=== PATIENT | female | born 1975 | race Caucasian/White ===

== ENCOUNTER → 2017-10-21 | Outpatient (CLI) | payer BC ==
[2017-10-21 09:56] LABS: ABSOLUTE BASOPHILS # (AUTO) 0.1 10^3/uL (0.0-0.2); ABSOLUTE EOSINOPHILS # (AUTO) 0.1 10^3/uL (0.0-0.6); ABSOLUTE MONOCYTES (AUTO) 0.7 10^3/uL (0.1-1.4); ABSOLUTE NEUT (AUTO) 4.5 10^3/uL (1.7-8.2); BASOPHILS % (AUTO) 0.8 % (0-2); EOSINOPHILS % (AUTO) 1.6 % (0-6); HEMATOCRIT 30.3 % (36.0-47.0); HEMOGLOBIN 9.7 g/dL (12.0-15.5); HGB HCT DIFFERENCE -1.2; LYMPHOCYTES % (AUTO) 27.2 % (13-45); MEAN CORPUSCULAR HEMOGLOBIN 22.8 pg (27.0-33.4); MEAN CORPUSCULAR HGB CONC 32.1 g/dL (32.0-36.0); MEAN CORPUSCULAR VOLUME 71 fl (80-97); MONOCYTES % (AUTO) 9.2 % (3-13); RED BLOOD COUNT 4.26 10^6/uL (3.72-5.28); RED CELL DISTRIBUTION WIDTH 16.9 % (11.5-14.0); SEGMENTED NEUTROPHILS % (AUTO) 61.2 % (42-78); WHITE BLOOD COUNT 7.3 10^3/uL (4.0-10.5)
[2017-10-21 10:22] LABS: ALANINE AMINOTRANSFERASE 30 U/L (9-52); ALBUMIN 4.2 g/dL (3.5-5.0); ALKALINE PHOSPHATASE 50 U/L (38-126); ANION GAP 11 (5-19); ASPARTATE AMINO TRANSFERASE 20 U/L (14-36); BILIRUBIN,DIRECT 0.4 mg/dL (0.0-0.4); BILIRUBIN,TOTAL 0.8 mg/dL (0.2-1.3); BLOOD UREA NITROGEN 12 mg/dL (7-20); CARBON DIOXIDE 22 mmol/L (22-30); CHLORIDE 107 mmol/L (98-107); CHOLESTEROL 189.51 mg/dL (0-200); CREATININE RESULT 0.56 mg/dL (0.52-1.25); Direct HDL 92 mg/dL (>40); GLUCOSE 91 mg/dL (75-110); POTASSIUM 4.4 mmol/L (3.6-5.0); TOTAL PROTEIN 7.1 g/dL (6.3-8.2); TRIGLYCERIDES 88 mg/dL (<150)
[2017-10-21 10:33] LABS: DIRECT LDL 80 mg/dL (<100)
== END ==
LOC: LAB 09:35
PROVIDERS: ATTEND Obstetrics & Gynecology
DX: Z13.1 Encounter for screening for diabetes mellitus (principal); Z13.220 Encounter for screening for lipoid disorders; Z13.21 Encounter for screening for nutritional disorder; Z13.0 Encounter for screening for diseases of the blood and blood-forming organs and certain disorders involving the immune mechanism; Z13.6 Encounter for screening for cardiovascular disorders; Z13.29 Encounter for screening for other suspected endocrine disorder
CPT/HCPCS: 36415; 80053; 80061; 82306; 83036; 84443; 85025

== ENCOUNTER → 2020-07-26 | Outpatient (CLI) | payer BC ==
[2020-07-26 11:34] LABS: ABSOLUTE BASOPHILS # (AUTO) 0.1 10^3/uL (0.0-0.2); ABSOLUTE EOSINOPHILS # (AUTO) 0.3 10^3/uL (0.0-0.6); ABSOLUTE LYMPHOCYTES (AUTO) 1.8 10^3/uL (0.5-4.7); ABSOLUTE MONOCYTES (AUTO) 0.7 10^3/uL (0.1-1.4); ABSOLUTE NEUT (AUTO) 5.2 10^3/uL (1.7-8.2); BASOPHILS % (AUTO) 1.3 % (0-2); EOSINOPHILS % (AUTO) 3.8 % (0-6); HEMOGLOBIN 9.6 g/dL (12.0-15.5); LYMPHOCYTES % (AUTO) 22.1 % (13-45); MEAN CORPUSCULAR HEMOGLOBIN 21.1 pg (27.0-33.4); MEAN CORPUSCULAR HGB CONC 31.2 g/dL (32.0-36.0); MEAN CORPUSCULAR VOLUME 68 fl (80-97); MONOCYTES % (AUTO) 9.1 % (3-13); PLATELET COUNT 512 10^3/uL (150-450); RED BLOOD COUNT 4.58 10^6/uL (3.72-5.28); SEGMENTED NEUTROPHILS % (AUTO) 63.7 % (42-78); TOTAL CELLS COUNTED % (AUTO) 100 %; WHITE BLOOD COUNT 8.1 10^3/uL (4.0-10.5)
[2020-07-26 12:04] LABS: ALKALINE PHOSPHATASE 53 U/L (38-126); ANION GAP 7 (5-19); ASPARTATE AMINO TRANSFERASE 26 U/L (14-36); BILIRUBIN,DIRECT 0.3 mg/dL (0.0-0.4); BILIRUBIN,TOTAL 0.7 mg/dL (0.2-1.3); BLOOD UREA NITROGEN 8 mg/dL (7-20); CALCIUM 8.7 mg/dL (8.4-10.2); CARBON DIOXIDE 25 mmol/L (22-30); CHLORIDE 107 mmol/L (98-107); CHOLESTEROL 171.57 mg/dL (0-200); GLUCOSE 84 mg/dL (75-110); POTASSIUM 4.7 mmol/L (3.6-5.0); TOTAL PROTEIN 6.8 g/dL (6.3-8.2); TRIGLYCERIDES 98 mg/dL (<150)
[2020-07-26 12:24] LABS: DIRECT LDL 90 mg/dL (<100)
== END ==
LOC: OD 09:55
PROVIDERS: ATTEND Obstetrics & Gynecology
DX: Z13.220 Encounter for screening for lipoid disorders (principal); Z13.0 Encounter for screening for diseases of the blood and blood-forming organs and certain disorders involving the immune mechanism; Z13.21 Encounter for screening for nutritional disorder; Z13.6 Encounter for screening for cardiovascular disorders; Z13.29 Encounter for screening for other suspected endocrine disorder; Z13.1 Encounter for screening for diabetes mellitus
CPT/HCPCS: 36415; 80053; 80061; 82306; 83036; 84443; 85025

== ENCOUNTER → 2020-08-02 | Outpatient (CLI) | payer BC ==
--- NOTE | 2020-08-02 14:50 | WOMENS IMAGING REPORT ---
EXAM DESCRIPTION: RIGHT DIAGNOSTIC MAMMO W/CAD; U/S BREAST UNILAT LIMITED IMAGES COMPLETED DATE/TIME: 08/02/2020 9:28 am; 08/02/2020 10:31 am REASON FOR STUDY: R92.2 INCONCLUSIVE MAMMOGRAM; N63 R92.2 INCONCLUSIVE MAMMOGRAM COMPARISON: Mammograms 07/26/2020 EXAM PARAMETERS: Cone compression magnification craniocaudal and mediolateral oblique images of the breast recorded with digital acquisition. Right breast 90 mediolateral view. Right breast ultrasound was also performed. Read with the assistance of CAD. .[facility] - [employer] Version 9.2 LIMITATIONS: None. FINDINGS: BREAST LATERALITY: right MASSES: A 1 cm mammographic mass with irregular borders and punctate calcification is present in the right breast upper inner quadrant about 6 cm from the nipple, at about the 1 o'clock position. CALCIFICATIONS: Cluster of adjacent calcifications slightly variable in size shape and density, 12 o' clock position 6 cm from the nipple. ARCHITECTURAL DISTORTION: None. ASYMMETRY: None noted. OTHER: No other significant findings. Right breast ultrasound: Ultrasound of the upper half right breast was performed. No discrete masses are identified at ultras ound. No cysts. No worrisome acoustic absorption IMPRESSION: 1 cm mammographic mass with irregular borders and punctate calcification right breast up per inner quadrant about 6 cm the nipple. This is not visualized at ultrasound. Stereotactic biopsy is recommended with post biopsy clip placement and follow-up two-view mammogram. Clustered microcalcifications in the right breast 12 o'clock position 6 cm from the nipple. Stereota ctic biopsy is recommended with post biopsy clip placement and follow-up two-view mammogram BREAST DENSITY: b. There are scattered areas of fibroglandular density. BIRAD: ASSESSMENT: 4 Suspicious. Biopsy should be performed in the absence of clinical contra-indic ation. RECOMMENDATION: RECOMMENDED FOLLOW UP: Stereotactic biopsy of right breast 1 cm nodule with lobular borders and punctate calcification. Stereotactic biopsy of right breast calcifications 12 o'clock position. COMMUNICATION:These results were not discussed with the patient COMMENT: The patient has been notified of the results by letter per MQSA requirements. Additional no tification policies are in place for contacting patient with suspicious or incomplete findings. Quality ID #225: The [employer] recommends an annual screening mammogram for women aged 40 years or over. This facility utilizes a reminder system to ensure that all patients receive reminder letters, and/or direct phone calls for appointments. This includes reminders for routine scr eening mammograms, diagnostic mammograms, or other Breast Imaging Interventions when appropriate. Th is patient will be placed in the appropriate reminder system. TECHNICAL DOCUMENTATION: FINDING NUMBER: (1) ASSESSMENT: (1) JOB ID: [id number] 2010 [employer]- All Rights Reserved Reading location - IP/workstation name: [email or web address]
--- NOTE | 2020-08-02 14:50 | WOMENS IMAGING REPORT ---
EXAM DESCRIPTION: RIGHT DIAGNOSTIC MAMMO W/CAD; U/S BREAST UNILAT LIMITED IMAGES COMPLETED DATE/TIME: 08/02/2020 9:28 am; 08/02/2020 10:31 am REASON FOR STUDY: R92.2 INCONCLUSIVE MAMMOGRAM; N63 R92.2 INCONCLUSIVE MAMMOGRAM COMPARISON: Mammograms 07/26/2020 EXAM PARAMETERS: Cone compression magnification craniocaudal and mediolateral oblique images of the breast recorded with digital acquisition. Right breast 90 mediolateral view. Right breast ultrasound was also performed. Read with the assistance of CAD. .[facility] - [employer] Version 9.2 LIMITATIONS: None. FINDINGS: BREAST LATERALITY: right MASSES: A 1 cm mammographic mass with irregular borders and punctate calcification is present in the right breast upper inner quadrant about 6 cm from the nipple, at about the 1 o'clock position. CALCIFICATIONS: Cluster of adjacent calcifications slightly variable in size shape and density, 12 o' clock position 6 cm from the nipple. ARCHITECTURAL DISTORTION: None. ASYMMETRY: None noted. OTHER: No other significant findings. Right breast ultrasound: Ultrasound of the upper half right breast was performed. No discrete masses are identified at ultras ound. No cysts. No worrisome acoustic absorption IMPRESSION: 1 cm mammographic mass with irregular borders and punctate calcification right breast up per inner quadrant about 6 cm the nipple. This is not visualized at ultrasound. Stereotactic biopsy is recommended with post biopsy clip placement and follow-up two-view mammogram. Clustered microcalcifications in the right breast 12 o'clock position 6 cm from the nipple. Stereota ctic biopsy is recommended with post biopsy clip placement and follow-up two-view mammogram BREAST DENSITY: b. There are scattered areas of fibroglandular density. BIRAD: ASSESSMENT: 4 Suspicious. Biopsy should be performed in the absence of clinical contra-indic ation. RECOMMENDATION: RECOMMENDED FOLLOW UP: Stereotactic biopsy of right breast 1 cm nodule with lobular borders and punctate calcification. Stereotactic biopsy of right breast calcifications 12 o'clock position. COMMUNICATION:These results were not discussed with the patient COMMENT: The patient has been notified of the results by letter per MQSA requirements. Additional no tification policies are in place for contacting patient with suspicious or incomplete findings. Quality ID #225: The [employer] recommends an annual screening mammogram for women aged 40 years or over. This facility utilizes a reminder system to ensure that all patients receive reminder letters, and/or direct phone calls for appointments. This includes reminders for routine scr eening mammograms, diagnostic mammograms, or other Breast Imaging Interventions when appropriate. Th is patient will be placed in the appropriate reminder system. TECHNICAL DOCUMENTATION: FINDING NUMBER: (1) ASSESSMENT: (1) JOB ID: [id number] 2010 [employer]- All Rights Reserved Reading location - IP/workstation name: [email or web address]
== END ==
LOC: WI 08:53 → EDSTATUS 09:00
PROVIDERS: ATTEND Obstetrics & Gynecology
DX: N63.12 Unspecified lump in the right breast, upper inner quadrant (principal)
CPT/HCPCS: 76642; 77065

== ENCOUNTER → 2020-09-05 | Day surgery (SDC) | payer BC ==
[~2020-09-05] MED LIST: LIDOCAINE 1%/EPINEPHRINE INJ 20 ML VIAL ONE
--- NOTE | 2020-09-05 11:57 | Discharge Summary ---
Discharge Summary (SDC) - Discharge Final Diagnosis: 1. Clustered microcalcifications right breast 2. Asymmetric density right breast Date of Surgery: 09/05/20 Discharge Date: 09/05/20 Condition: Good Treatment or Instructions: Allow Steri-Strips to fall off; take Tylenol and Motrin as needed pain; wear supportive bra; await final pathology report; follow-up with [place] [facility] in 1 to 2 weeks. Referrals: RASHAWN REID MD [Primary Care Provider] - Discharge Diet: As Tolerated Discharge Activity: Activity As Tolerated, Other - Wear supportive bra Home Care Assistance: None Needed Report the Following to Your Physician Immediately: Shortness of Breath, Increase in Pain, Fever over 101 Degrees
--- NOTE | 2020-09-05 12:04 | Operative Report ---
Operative Report DATE OF SURGERY: 09/05/20 PREOPERATIVE DIAGNOSIS: 1. Clustered microcalcifications central right breast. 2. Asymmetric nodular density with calcification central aspect right breast POSTOPERATIVE DIAGNOSIS: Same OPERATION: 1. Stereotactically directed incision mammotomy and core biopsies right breast, central aspect lateral position. 2. Second stereotactically directed incision mammotomy core biopsies right breast, central aspect, medial position. 3. Placement of clip markers at biopsy sites described above. 4. Interpretation of intraoperative mammography and specimen radiographs SURGEON: OSCAR CEBALLOS ANESTHESIA: Local TISSUE REMOVED OR ALTERED: Multiple cores right breast COMPLICATIONS: None ESTIMATED BLOOD LOSS: Scant INTRAOPERATIVE FINDINGS: See below PROCEDURE: Patient was taken from the waiting area to the radiology suite with the stereotactic table. The right breast was placed to compression, and a craniocaudal approach was used. There were 2 target sites in the right breast, deep central aspect, one slightly lateral, cluster microcalcifications, and the second slightly medial, asymmetric density with a single microcalcification. They will be referred to as target a and B respectfully Surgical plan and surgical timeout were conducted Target a was localized with 0, plus and -15 views. The surface of the right breast was prepped with Betadine. Skin was anesthetized with 1% with epinephrine lidocaine. A small javi was made the skin with 11 blade. Mammotome advanced the appropriate depth. Pre and post fire films show good alignment between the mammotome tip and the cluster of microcalcifications. We now cut approximately 10 cores in a circumferential fashion acquiring adequate specimens which were then placed on a Mena dish and imaged with the specimen radiograph machine in the procedure room. This revealed at least 2 cores with the majority of the micro calcifications of interest. We placed a clip marker into the biopsy cavity, and remove the mammotome. Bleeding was negligible. It was receptive to a second biopsy procedure. The second area, target B, slightly medial to the first by approximately 3 to 4 cm. This target was represented by a single microcalcification in an asymmetric nodular density. S tereotactic views were obtained, surface of the breast reprepped with Betadine and anesthetized with 1% lidocaine with epinephrine. A second javi was made in the skin with 11 blade, mammotome advanced appropriate depth, and pre and post fire films show good alignment between the mammotome tip and the target asymmetric nodular density. We completed biopsing in a circumferential fashion with the acquisition of approximately 10 cores specimens were placed in a Mena dish, imaged with the portable radiograph machine, and found to contain the target microcalcification and breast parenchyma. A clip marker was placed in the second cavity, and mammotome and introducer sheath removed. Patient tolerated procedure well. Breast was taken out of compression, Steri- Strips applied. Discharge instructions provided.
== END ==
LOC: RAD 09:49
PROVIDERS: ATTEND Surgery
DX: N63.10 Unspecified lump in the right breast, unspecified quadrant (principal); R92.0 Mammographic microcalcification found on diagnostic imaging of breast
CPT/HCPCS: 88305 ×2; 19081; 19082; 77065; J3490; 88342

== ENCOUNTER → 2020-10-29 | Outpatient (CLI) | payer BC ==
[2020-10-29 10:49] VITALS: BP 136/69
--- NOTE | 2020-10-29 10:49 | ER RDC ASSESSMENT REPORT ---
Intake - In the Last 14 days Have you traveled outside [place]?: No Have you been in close contact with someone CONFIRMED: Yes Worked in Healthcare?: Yes - Symptoms Subjective Fever(Jane [place] feverish): No Chills: No Muscule Aches: Yes Runny Nose: Yes Sore Throat: No Cough (New or worsening chronic cough): Yes Shortness of breath: No Nausea or Vomiting: Yes Headache: Yes Abdominal Pain: No Diarrhea(3 or more loose stools in last 24 hours): No - Do you have any of the following Chronic lung disease: Asthma or emphysema or COPD: No Cystic Fibrosis: No Diabetes: No High Blood Pressure: No Cardiovascular Disease: No Chronic Kidney Disease: No Chronic Liver Disease: No Chronic blood disorder like Sickle Cell Disease: No Weak immune system due to disease or medication: No Neurologic condition that limits movement: No Developmental delay - Moderate to Severe: No Recent (within past 2 weeks) or current : No Morbid Obesity (>100 pounds over ideal weight): No - Objective Temperature: 98.7 F Pulse Rate: 60 Respiratory Rate: 18 Blood Pressure: 136/69 O2 Sat by Pulse Oximetry: 97 Objective: Given above, testing performed: Flu strep Covid Disposition: Home; Selfcare General - General Stated Complaint: Congestion, runny nose, cough Time Seen by Provider: 10/29/20 10:15 Mode of Arrival: Ambulatory Information source: Patient - HPI Notes: 45-year-old female presents to [facility] clinic for COVID-19 testing. 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 Onset of symptoms 10/27/2020. Patient reports she normally has a cough related to allergies but this cough has worsened in intensity and frequency. Also reports muscle aches, runny nose, headache, and nausea. Denies any change in taste or smell, fevers or chills, GI upset, sore throat, or shortness of breath. Past Medical History - General Information source: Patient - Social History Smoking Status: Never Smoker Family History: Reviewed & Not Pertinent - Past Medical History Cardiac Medical History: Reports: None Pulmonary Medical History: Reports: None EENT Medical History: Reports: None Neurological Medical History: Reports: None Endocrine Medical History: Reports: None Renal/ Medical History: Reports: None Malignancy Medical History: Reports: None GI Medical History: Reports: None Musculoskeletal Medical History: Reports None Skin Medical History: Reports None Psychiatric Medical History: Reports: None Traumatic Medical History: Reports: None Infectious Medical History: Reports: None Past Surgical History: Reports: Hx Section, Hx Tubal Ligation Physical Exam - General General appearance: Appears well, Alert In distress: None Notes: PHYSICAL EXAMINATION: GENERAL: Well-appearing and in no acute distress. HEAD: Atraumatic, normocephalic. EYES: sclera anicteric, conjunctiva are normal. ENT: nares patent. Moist mucous membranes. NECK: Normal range of motion, supple without lymphadenopathy. LUNGS: No increased work of breathing. Lung sounds CTAB and equal. No wheezes rales or rhonchi. HEART: Regular rate and rhythm without murmurs. ABDOMEN: Soft, nontender, normal bowel sounds, no guarding. EXTREMITIES: Normal range of motion, no pitting edema. No cyanosis. NEUROLOGICAL: A&O x 3. Normal speech. PSYCH: Normal mood, normal affect. SKIN: Warm, Dry, normal turgor, no rashes or lesions noted Patient Education/Counseling Counseling/Education: Patient presents with symptoms associated with possible Covid 19 infection. Patient does not have emergency worrying symptoms such as difficulty breathing, shortness of breath, chest pain, pressure, confusion or cyanosis. Patient appears suitable for discharge as vital signs are stable and patient is nontoxic in appearance. Good return precautions have been discussed with patient, patient verbalized understanding and is agreeable with discharge plan of care at this time. Guidance for worsening S/SX: As a person under investigation for Covid 19, the [place] department of Health and Human Services, division of public health advises you to adhere to the following guidance until your test results are reported to you. If your test result is positive, you will receive additional information from your provider and your local health department at that time. Remain at home until you are cleared by the health provider or public health authorities. Keep a log of visitors to your home, notify any visitors to your home of your isolation status. If you plan to move to a new address or leave the county, notify the local health department in your County. Call your doctor or seek care if you have an urgent medical need. Before seeking medical care, call ahead to get instructions from the provider before arriving at the medical office clinic or hospital. Notify them that you are being tested for the virus that causes Covid 19 so that arrangements can be made, as necessary, to prevent transmission to others in the healthcare setting. Next, notify the local health department in your county. If a medical emergency arises and you need to call 911, inform the first responders that you are being tested for the virus that causes Covid 19. Next, notify the local health department in your county. RDC Discharge - Discharge Clinical Impression: Encounter for screening laboratory testing for COVID-19 virus Upper respiratory infection Qualifiers: URI type: unspecified URI Qualified Code(s): J06.9 - Acute upper respiratory infection, unspecified Condition: Good Disposition: Home; Selfcare
[2020-10-29 12:12] LABS: A TYPE INFLUENZA AG NEGATIVE (NEGATIVE); B INFLUENZA AG NEGATIVE (NEGATIVE)
== END ==
LOC: RDC 09:54
PROVIDERS: ATTEND Registered Nurse
DX: Z20.828 Contact with and (suspected) exposure to other viral communicable diseases (principal)
CPT/HCPCS: 87070; 87880; 87804; 99201; 99211; U0003; C9803; 87635